=== PATIENT | female | born 1950 | race Caucasian/White ===

== ENCOUNTER 2017-01-03 12:15 | Outpatient (CLI) | payer MEDICARE, OTHER ==
--- NOTE | 2017-01-03 15:36 | Diagnostic Imaging Report ---
Indication: COUGH Technique: Two views of the chest Comparison: 08/25/2008 Findings: Lungs and pleural spaces are clear. Heart size is normal. Aorta is tortuous. No CV change Impression: Negative
== END 2017-01-03 14:15 | disposition home or self-care (01) ==
LOC: RAD 12:15
DX: R05 Cough (principal)
CPT/HCPCS: 71020